=== PATIENT | female | born 1985 | race Caucasian/White ===

== ENCOUNTER 2020-09-17 17:03 | Emergency (ER) | payer OTHER ==
[2020-09-17 18:23] LABS: BASOPHIL 0.3 % (0-2); EOSINOPHIL 1.5 % (0-5); HCT 45.1 % (37.0-47.0); HGB 14.8 g/dl (12.5-16.0); LYMPHOCYTE 39.7 % (15-48); MCH 31.2 pg (25.0-31.0); MCHC 32.8 g/dL (32.0-36.0); MCV 95.1 fL (78.0-100.0); MONOCYTE 5.5 % (0-12); NEUTROPHIL 52.7 % (41-80); NRBC 0; PLT 297 K/uL (150-400); RBC 4.74 M/uL (4.20-5.40); RDW 12.5 % (11.5-14.0); WBC 9.8 K/uL (4.0-10.5)
[2020-09-17 18:33] LABS: BUN/CREAT RATIO (CALC) 11.3 RATIO; CREATININE 0.71 mg/dL (0.51-0.95); POTASSIUM 3.9 mmol/L (3.5-5.1)
[2020-09-17 19:57] LABS: BILIRUBIN NEGATIVE (NEGATIVE); BLOOD 2+ Ery/uL (NEGATIVE); CLARITY CLEAR (CLEAR); COLOR YELLOW (YELLOW); GLUCOSE (U) NORMAL (NORMAL); LEUKOCYTES TRACE Leu/uL (NEGATIVE); NITRITE NEGATIVE (NEGATIVE); PROTEIN NEGATIVE (NEGATIVE); UROBILINOGEN 0.2 mg/dL (0.2-1.0)
[2020-09-17 20:02] LABS: BACTERIA TRACE
[2020-09-17] MEDS ORDERED: BACLOFEN 10MG T10 MG PO (20:55)
[2020-09-17] MEDS ORDERED: ZOFRAN4 M1 PO (20:55)
[2020-09-17] MEDS ORDERED: FIORICET1 EACH PO (20:55)
== END 2020-09-17 21:09 | disposition home or self-care (01) ==
LOC: FER 17:03
PROVIDERS: Nurse Practitioner Family
DX: G43.909 Migraine, unspecified, not intractable, without status migrainosus (principal); M79.18 Myalgia, other site; F17.210 Nicotine dependence, cigarettes, uncomplicated
CPT/HCPCS: 36415; 80048; 81001; 85025; 87088; J1100; J1885; J2405; J7030